=== PATIENT | male | born 1965 | race Caucasian/White ===

== ENCOUNTER → 2016-12-28 | Outpatient (CLI) | payer OTHER ==
--- NOTE | 2016-12-29 08:28 | XR ---
PA chest x-ray with left RIBS HISTORY: Pain No comparisons Frontal view of the chest and 4 views of the left ribs submitted on a total of 7 images There is no pneumothorax, pneumonia, or pleural effusion. Patient is rotated. Cardiac mediastinal vinay houette, pulmonary vascularity and bari are within normal limits. No displaced rib fracture. Bone min eralization is maintained. IMPRESSION: No significant abnormalities evident.
== END ==
LOC: RADXRYALE 15:47
PROVIDERS: ATTEND Physician Assistant Medical
DX: R07.81 Pleurodynia (principal)

== ENCOUNTER → 2017-07-29 | Outpatient (CLI) | payer OTHER ==
--- NOTE | 2017-07-29 12:15 | XR ---
EXAMINATION TYPE: XR ankle complete LT DATE OF EXAM: 07/29/2017 COMPARISON: NONE HISTORY: 51-year-old male lateral malleolus ankle pain after rolling ankle 2 months ago TECHNIQUE: 3 views FINDINGS: There is bony irregularity at the lateral malleolus with subtle horizontally oriented lucency. Mild l ateral malleolar soft tissue swelling. Ankle mortise otherwise congruent. Talar dome is intact. IMPRESSION: Findings suggest a subacute nondisplaced Barraza type A fracture of the lateral malleolus. Healing crowe ge appears incomplete.
== END | disposition home or self-care (01) ==
LOC: RADXRYALE 09:33
PROVIDERS: ATTEND Physician Assistant Medical
DX: M25.571 Pain in right ankle and joints of right foot (principal)